=== PATIENT | female | born 1985 | race Caucasian/White ===

== ENCOUNTER 2022-12-05 16:00 | Emergency (ER) | payer BC ==
[2022-12-05] MEDS ORDERED: DIPH,PERTUS(ACELL)TETVAC-LF 0.5 ML VIAL IM ONE (16:41)
[2022-12-05] MEDS ORDERED: CEPHALEXIN 500 MG CAP PO STA (16:41)
[2022-12-05] MEDS ORDERED: KETOROLAC 15 MG/ML 1 ML VIAL IM STA (16:42)
[2022-12-05] MEDS ORDERED: LIDOCAINE 1% INJ 10MG/ML (20 ML MDV) SQ ONE (16:42)
--- NOTE | 2022-12-05 17:58 | XR ---
EXAMINATION TYPE: XR toes LT DATE OF EXAM: 12/05/2022 COMPARISON: None HISTORY: Foreign body third toe injury TECHNIQUE: 2 view left foot. FINDINGS: Images appear to be obtained through sandals. There is a metallic foreign body extending to the distal aspect of the third digit. This may extend towards the lateral aspect of the second digit . No osseous content is identified. No acute fractures are evident. IMPRESSION: 1. Foreign body within the soft tissues of the distal third digit. 2. Osseous structures appear intact.
--- NOTE | 2022-12-05 18:06 | ED ---
Lower Extremity Injury HPI - General Chief Complaint: Extremity Injury, Lower Stated Complaint: left toe injury Time Seen by Provider: 12/05/22 16:33 Source: patient Mode of arrival: ambulatory Limitations: no limitations - History of Present Illness Initial Comments: Patient is a 37-year-old female who presents the emergency department for toe injury. [place] some sort of metal wire punctured her toe through and through. Patient does have significant toe pain. Tetanus is not updated. - Related Data Previous Rx's Medication Instructions Recorded Cephalexin [Keflex] 500 mg PO Q6HR #40 cap 12/05/22 Ibuprofen [Motrin] 800 mg PO Q8HR PRN #30 tab 12/05/22 Allergies Allergy/AdvReac Type Severity Reaction Status Date / Time No Known Allergies Allergy Verified 12/05/22 16:31 Review of Systems ROS Statement: Those systems with pertinent positive or pertinent negative responses have been documented in the HPI. ROS Other: All systems not noted in ROS Statement are negative. Past Medical History Past Medical History: No Reported History History of Any Multi-Drug Resistant Organisms: None Reported Additional Past Surgical History / Comment(s): eye surgery Past Psychological History: No Psychological Hx Reported Smoking Status: Never smoker Past Alcohol Use History: None Reported Past Drug Use History: None Reported General Exam Limitations: no limitations General appearance: alert Respiratory exam: Present: normal lung sounds bilaterally. Absent: respiratory distress, wheezes, rales, rhonchi, stridor Cardiovascular Exam: Present: regular rate, normal rhythm, normal heart sounds. Absent: systolic murmur, diastolic murmur, rubs, gallop, clicks Extremities exam: Present: other (Wire through third left toe which enters the plantar aspect of the toe and exits medially towards tip of toe. Bone does not appear to be involved. Neurovascularly intact) Neurological exam: Present: alert Psychiatric exam: Present: normal affect, normal mood Skin exam: Present: warm, dry, intact, normal color. Absent: rash Course Vital Signs 12/05/22 12/05/22 16:29 18:53 Temperature 98.0 F 98.2 F Pulse Rate 70 57 L Respiratory 20 16 Rate Blood Pressure 136/89 136/91 O2 Sat by Pulse 99 100 Oximetry Procedures - Forgein Body Removal Soft Tissue Consent Obtained: verbal consent Anesthetic Used: lidocaine 1% Foreign Body Suspected: Metal Foreign Body Removed: yes Foreign Body Removal Technique: Irrigation Patient Tolerated Procedure: well, no complications Medical Decision Making - Medical Decision Making Was pt. sent in by a medical professional or institution (CYNDI Chen, PLASTIC SURGERY TECHNICIAN, urgent care, hospital, or halfway...) When possible be specific @ -No Did you speak to anyone other than the patient for history (EMS, parent, family, police, friend...)? What history was obtained from this source @ -No Did you review nursing and triage notes (agree or disagree)? Why? @ -I reviewed and agree with nursing and triage notes Were old charts reviewed (outside hosp., previous admission, EMS record, old EKG, old radiological studies, urgent care reports/EKG's, halfway records)? Report findings @ -No old charts were reviewed Differential Diagnosis (chest pain, altered mental status, abdominal pain women, abdominal pain men, vaginal bleeding, weakness, fever, dyspnea, syncope, headache, dizziness, GI bleed, back pain, seizure, CVA, palpatations, mental health)? @ -not applicable EKG interpreted by me (3pts min.). @ -As above X-rays interpreted by me (1pt min.). @ -Foreign body in toe no acute osseous process CT interpreted by me (1pt min.). @ -None done U/S interpreted by me (1pt. min.). @ -None done What testing was considered but not performed or refused? (CT, X-rays, U/S, labs)? Why? @ -None What meds were considered but not given or refused? Why? @ -None Did you discuss the management of the patient with other professionals (professionals i.e. CYNDI Chen, PLASTIC SURGERY TECHNICIAN, lab, RT, psych nurse, nursing home social worker, timber packer, teacher, contact officer, shoe parts caser)? Give summary @ -No Was smoking cessation discussed for >3mins.? @ -[No] Was critical care preformed (if so, how long)? @ -[No] Were there social determinants of health that impacted care today? How? (Homelessness, low income, unemployed, alcoholism, drug addiction, transportation, low edu. Level, literacy, decrease access to med. care, [facility], rehab)? @ -[No] Was there de-escalation of care discussed even if they declined (Discuss DNR or withdrawal of care, Hospice)? DNR status @ -[No] What co-morbidities impacted this encounter? (DM, HTN, Smoking, COPD, CAD, Cancer, CVA, ARF, Chemo, Hep., AIDS, mental health diagnosis, sleep apnea, morbid obesity)? @ -[None] Was patient admitted / discharged? Hospital course, mention meds given and route, prescriptions, significant lab abnormalities, going to OR and other pertinent info. @Patient presented metal wire in tip of toe. X-ray interpreted by myself showing no acute osseous process. The toe was irrigated thoroughly , nerve block performed, wire was removed. It was then irrigated again. She tolerated the procedure well. Tetanus updated patient started on antibiotics. Patient stable medical condition for discharge. We discussed wound care in detail. Patient will take Keflex at home. Discussed return parameters. Undiagnosed new problem with uncertain prognosis? @ -[No] Drug Therapy requiring intensive monitoring for toxicity (Heparin, Nitro, Insulin, Cardizem)? @ -[No] Were any procedures done? @ -foreign body removal Diagnosis/symptom? @ -left toe injury Acute, or Chronic, or Acute on Chronic? @ -acute Uncomplicated (without systemic symptoms) or Complicated (systemic symptoms)? @ -uncomplicated Side effects of treatment? @ -[No] Exacerbation, Progression, or Severe Exacerbation? @ -[No] Poses a threat to life or bodily function? How? (Chest pain, [place], [place], pneumonia, PE, COPD, DKA, ARF, appy, cholecystitis, CVA, Diverticulitis, Homicidal, Suicidal, threat to staff... and all critical care pts) @ -[No] Dr. Lambert is my attending Disposition Clinical Impression: Injury of toe on left foot Disposition: HOME SELF-CARE Condition: Good Instructions (If sedation given, give patient instructions): Acute Wound Care (ED) Additional Instructions: Leave wound uncovered. Keep wound clean and dry. Wash with a mild soap. Take Tylenol or anti-inflammatories such as Motrin for pain. Take Keflex to prevent infection. Follow-up with primary care provider in 1-2 days. Report back to the emergency department if you experience new, concerning, or worsening symptoms. Prescriptions: Cephalexin [Keflex] 500 mg PO Q6HR #40 cap Ibuprofen [Motrin] 800 mg PO Q8HR PRN #30 tab PRN Reason: Pain Is patient prescribed a controlled substance at d/c from ED?: No Referrals: None,Stated [Primary Care Provider] - 1-2 days
[2022-12-05] MEDS ORDERED: HYDROmorphone 0.5 MG/0.5 ML SYRINGE IM STA (18:15)
[2022-12-05] MEDS ORDERED: ACET/COD 300 MG/30 MG STARTER PACK 6 TAB BTL PO STA (18:40)
[2022-12-05 18:56] VITALS: BP 136/91; PULSE 57; RESP 16; TEMP 98.2
== END 2022-12-05 18:55 | disposition home or self-care (01) ==
LOC: EC 16:00
DX: S90.455A Superficial foreign body, left lesser toe(s), initial encounter (principal); Z23 Encounter for immunization; W45.8XXA Other foreign body or object entering through skin, initial encounter; Y92.832 Beach as the place of occurrence of the external cause; Y93.01 Activity, walking, marching and hiking
CPT/HCPCS: 73660; 90715; 99283; 96372; 90471; 64450; J2001; J1885